=== PATIENT | male | born 1960 | race Native Hawaiian/Other Pacific Islander ===

== ENCOUNTER 2018-11-25 15:10 | Emergency (ER) | payer OTHER ==
[~2018-11-25] VITALS: Ht 182.9 cm; Wt 110.8 kg
[2018-11-25 16:45] LABS: PLATELET COUNT 258 K/uL (142-355)
[2018-11-25 19:00] VITALS: BP 147/75; TEMP 98
== END 2018-11-25 19:00 | disposition short-term general hospital (02) ==
LOC: ED 15:10
PROVIDERS: Emergency Medicine
DX: E11.40 Type 2 diabetes mellitus with diabetic neuropathy, unspecified (principal); R79.89 Other specified abnormal findings of blood chemistry; I51.9 Heart disease, unspecified; E11.69 Type 2 diabetes mellitus with other specified complication
CPT/HCPCS: 36415; 80053; 80307; 81000; 82550; 83036; 83735; 84484; 85027; 93005; 99284

== ENCOUNTER 2018-11-25 19:04 | Outpatient (CLI) | payer OTHER | END 2018-11-25 19:41 | disposition short-term general hospital (02) | LOC: AMB 19:04 | DX: R20.2 Paresthesia of skin (principal); R20.0 Anesthesia of skin; E11.9 Type 2 diabetes mellitus without complications; R79.89 Other specified abnormal findings of blood chemistry | CPT/HCPCS: A0425; A0427 ==

== ENCOUNTER 2020-10-20 08:16 | Outpatient (CLI) | payer OTHER | END 2020-10-20 21:54 | disposition home or self-care (01) | LOC: INF 08:16 | PROVIDERS: ATTEND Internal Medicine | DX: Z23 Encounter for immunization (principal) | CPT/HCPCS: 96372 ==

== ENCOUNTER 2020-11-11 09:39 | Outpatient (CLI) | payer OTHER | END 2020-11-11 21:05 | disposition home or self-care (01) | LOC: INF 09:39 | PROVIDERS: ATTEND Internal Medicine | DX: Z23 Encounter for immunization (principal) | CPT/HCPCS: 96372 ==